=== PATIENT | female | born 1945 | race Caucasian/White ===

== ENCOUNTER → 2022-01-24 15:07 | Outpatient (BNVA) | payer MEDICARE, OTHER, SELFPAY | PROVIDERS: Visit Provider Nurse Practitioner | DX: R07.89 Other chest pain (principal); E55.9 Vitamin D deficiency, unspecified; I48.91 Unspecified atrial fibrillation; I10 Essential (primary) hypertension; S00.93XA Contusion of unspecified part of head, initial encounter; X58.XXXA Exposure to other specified factors, initial encounter | CPT/HCPCS: 71046; 80053; 82306; 84443; 85025 ==

== ENCOUNTER 2022-04-13 06:00 | Outpatient (RCR) | payer MEDICARE, OTHER, SELFPAY | END 2022-05-06 23:59 | disposition home or self-care (01) | LOC: APT 06:00 | PROVIDERS: Visit Provider Family Medicine | DX: M19.90 Unspecified osteoarthritis, unspecified site (principal); L40.50 Arthropathic psoriasis, unspecified | CPT/HCPCS: 97110; 97116; 97161; 97530 ==

== ENCOUNTER 2022-04-20 14:34 | Emergency (ER) | payer MEDICARE, OTHER, SELFPAY ==
[2022-04-20 14:42] VITALS: BP 156/58; PULSE 60; RESP 16; TEMP 36.7; O2SAT 95; BMI 29.2
--- NOTE | 2022-04-20 15:01 | PC.PHAR ---
Addendum entered by Julianne Lamar 04/20/22 15:07: pt states she takes hydroxychloroquine 200mg daily rx filled 03/25/22 90d/s for 200mg bid Original Note: pt states she takes care of her own medications-pt states she no longer takes eliquis 5mg bid pt states not taken for months ext med history shows last filled 07/19/21 90d/s-pt states she takes xanax 0.25-0.5mg hs prn ext med history shows last filled 03/25/22 30d/s 0.5mg daily-pt states she has an old rx of percocet 5/325mg states she took one this am-
--- NOTE | 2022-04-20 15:20 | XR_ITS ---
WS: [id number] XR lumbar spine 2-3V* [id number] REASON FOR EXAM: low back pain, no trauma, hx of psoriatic arthritis FINDINGS: Mild rotatory scoliosis convex left. No significant vertebral body abnormality. Mild narrowing of the L2-L3 disc space. Severe narrowing of the L4-L5 disc space with 12 mm of anterolisthesis of L4 on L5. Mild narrowing of the L5-S1 disc space. No spondylolysis identified. Severe degenerative change in the facet joints L3-S1. XR/XR lumbar spine 2-3V* [id number] IMPRESSION: Multilevel degenerative spondylosis as above.
--- NOTE | 2022-04-20 15:21 | W.ED.BACK ---
HPI - Back Pain/Injury General: Chief Complaint: Back Pain/Injury Stated Complaint: Low back pain Time Seen by Provider: 04/20/22 14:38 History of Present Illness: Patient presents to the ER with complaints of low back pain. Patient does have a history of psoriatic arthritis and often gets back pain but not to this extreme. Patient has had no overt trauma. This has been going on for approximately 1 week. Patient did start physical therapy for her walking and balance issues. Patient states last night she did lift her walker while twisting and felt a sharp pain in her low back. Patient admits to taking naproxen Tylenol Percocet and Xanax over the last 24 hours with no relief. MD elicited complaint: back pain Pertinent past history: prior back pain Onset (ago): week(s) (Worse in the last day) Timing: constant Severity: similar to previous episodes Similar Symptoms Previously: Yes Quality: sharp (Originally had sharp stabbing pain), dull and aching Location: lumbar spine Radiation: none Exacerbating factors: movement Relieving factors: none Context: while lifting and turning/twisting Associated symptoms: Reports no associated symptoms; Deny abdominal pain, chills, dysuria, fever(s), nausea or vomiting Treatments prior to arrival: NSAIDS, acetaminophen and prescription analgesics Work related injury: No Review of Systems General: Reports: 10 or more systems reviewed and unremarkable except in HPI and below Const: Denies: fever(s), chills or body aches Eyes: Denies: change in vision ENMT: Denies: throat pain or odynophagia Card: Denies: chest pain, palpitations, irregular heart rhythm or edema Resp: Denies: dyspnea, productive cough, non-productive cough or wheezing GI: Denies: abdominal pain, nausea, vomiting or diarrhea : Denies: flank pain, difficulty voiding, dysuria or urinary frequency Musc: Reports: back pain Skin/Breast: Denies: rash or pruritus Neuro: Denies: headache(s), numbness in extremities or weakness in extremities Psych: Denies: anxiety or depression Endo: Denies: polyuria or polydipsia Rios/Lymph: Denies: easy bruising or easy bleeding All/Imm: Denies: urticaria or throat swelling PFSH ED PFSH: Medical History Atrial fibrillation Essential hypertension OA (osteoarthritis) Psoriatic arthritis Surgical History History of appendectomy History of cataract surgery Both eyes History of hysterectomy with out BSO History of knee surgery Left knee patella fracture History of tonsillectomy and adenoidectomy Family History Father CAD (coronary artery disease) Denies family history of Diabetes Chronic kidney disease (CKD) Cancer Hypertension Stroke Social History Smoking and tobacco status: former smoker Second hand smoke exposure: No Smoking risk assessment/counseling performed?: No Alcohol intake: never Desire information about alcohol rehabilitation?: No Counseling given: No Desire information about substance/drug rehabilitation?: No Counseling given: No Adopted: No Caregiver/support person: No Lives independently: Yes Household members: significant other Housing: House Marital status: Life Partner Number of children: 0 Number of grandchildren: 0 Highest education level completed: Bachelor's Degree service: No Current occupational status: retired Current occupational exposures/hazards: No Pets and animals: Yes Pets & animal details: chickens Current gender identity: Female Physical Exam Const: COMMON NORMALS: no acute distress, average body habitus, patient oriented x3, no limitations, healthy appearing, alert and well nourished HENMT: COMMON NORMALS: normocephalic, atraumatic, hearing grossly normal bilaterally and moist oral mucous membranes HEAD & SCALP: normocephalic and atraumatic Eye: COMMON NORMALS: Equal, round and reactive pupils present, EOMs intact bilaterally and conjunctivae normal CONJUNCTIVA: Yes conjunctivae normal PUPIL: Yes Equal, round and reactive pupils present Neck/C-Spine: COMMON NORMALS: full ROM, no lymphadenopathy, supple, no JVD and Thyroid normal THYROID: Thyroid normal Chest: COMMONS NORMALS: normal inspection of the chest and normal palpation of entire chest wall Resp: COMMON NORMALS: normal respiratory effort, No retractions, No use of accessory muscles and clear to auscultation bilaterally AUSCULTATION: clear to auscultation bilaterally Cardio: COMMON NORMALS: no JVD, regular rate, regular rhythm, S1 normal heart sound present, S2 normal heart sound present and No gallops present (Cardio) RATE: regular rate RHYTHM: regular rhythm HEART SOUNDS: S1 normal heart sound present and S2 normal heart sound present Back/Pelvis: THORACIC SPINE/UPPER BACK: Yes normal to inspection and Yes thoracic ROM normal LUMBAR SPINE/LOWER BACK: No lumbar spinal tenderness and Yes paraspinal muscle tenderness Neuro: COMMON NORMALS: patient oriented x3 SENSORIUM/ORIENTATION: Yes alert Course Vital Signs: Vital signs: Vital Signs Temperature 98.0 F 04/20/22 14:42 Pulse Rate 58 L 04/20/22 16:19 Respiratory Rate 16 04/20/22 16:19 Blood Pressure 174/65 04/20/22 16:19 Pulse Oximetry 95 04/20/22 16:19 Oxygen Delivery Me thod 04/20/22 14:42 MDM - Back Pain/Injury Medical Decision Making Presents to the ER with chronic back pain. This is post strain while twisting while lifting up her walker. Patient does have chronic back pain due to psoriatic arthritis. Patient states she had some Tylenol, naproxen, Percocet and Xanax at home to which she tried to relieve the pain with over the last 24 hours but it did not work. Pain stays localized to her low back and does not radiate. Upon history and physical exam as well as review of the lumbar spine x-ray that showed multilevel degenerative arthritis specifically showing severe narrowing of the L4-5 disc space with 12 mm of anterolisthesis on L4-5, this was all explained to the patient in detail as well as the need to change up her medication regimen. Patient was in agreements with this and will be discharged on a different pain medicine, muscle relaxer, as well as prednisone. Patient should follow-up with her primary care physician within 1 week especially if not improving. Differential Diagnosis Likely strain of lumbar region; Unlikely lumbar radiculopathy, sciatica or thoracic back pain Labs I reviewed the patient's lab results. Radiology Impressions Lumbar Spine X-Ray 04/20/22 15:20 IMPRESSION: Multilevel degenerative spondylosis as above. Discharge Plan Discharge Patient Disposition: Home Clinical Impression: Degenerative disc disease, lumbar Strain of lumbar region Qualifiers: Encounter type: initial encounter Qualified Code(s): S39.012A - Strain of muscle, fascia and tendon of lower back, initial encounter Osteoarthritis of lumbar spine Qualifiers: Spinal osteoarthritis complication: without myelopathy or radiculopathy Qualified Code(s): M47.816 - Spondylosis without myelopathy or radiculopathy, lumbar region Condition: Stable Prescriptions: New Zanaflex 4 mg capsule 4 mg PO TID PRN (Reason: muscle spasticity) Qty: 14 0RF prednisone 20 mg tablet 20 mg PO BID 5 Days Qty: 10 0RF meloxicam 15 mg tablet 15 mg PO DAILY Qty: 14 0RF No Action metoprolol tartrate 100 mg tablet 100 mg PO BID Qty: 180 3RF multivitamin Tablet 1 tab PO DAILY zinc acetate 50 mg (zinc) Capsule 50 mg PO DAILY Tylenol Ex Str Rapid Release 500 mg Tablet 500 - 1,000 mg PO Q6H PRN (Reason: Pain) Percocet 5-325 mg Tablet 0.5 - 1 tab PO Q4H PRN (Reason: Pain) Aleve 220 mg Tablet 220 - 440 mg PO Q12H PRN (Reason: Pain) magnesium 200 mg Tablet 200 mg PO DAILY Vitamin D3 25 mcg (1,000 unit) Tablet 2,000 - 5,000 unit PO DAILY Xyzal 5 mg Tablet 5 mg PO DAILY vitamin K2 100 mcg Capsule 100 mcg PO DAILY NAC 600 mg Tablet 600 mg PO BID alprazolam 0.5 mg tablet 0.25 - 0.5 mg PO BEDTIME PRN (Reason: Sleep) lisinopril 10 mg tablet 10 mg PO QAM hydroxychloroquine 200 mg tablet 200 mg PO DAILY Discharge Orders: Discharge ED (Routine); Ordered 04/20/22 Ordered By: Ernie Yancey Referrals: Jimmie Arenas DO [Primary Care Provider] - 1 week Discharge Activity: Increase activity as tolerated Patient Instructions: Osteoarthritis (ED), Low Back Strain (ED), Opioid Safety, Pain Management Coding Level of Care Code ED Civil Drafting Technician for Sukumar Carmen
[2022-04-20] MEDS: ketorolac 60 mg/2 mL INJ IM (16:01)
[2022-04-20] MEDS: orphenadrine 30 mg/mL Inj 2 mL 60 MG IM (16:01)
[2022-04-20 16:19] VITALS: BP 174/65; PULSE 58; RESP 16; O2SAT 95
== END 2022-04-20 16:15 | disposition home or self-care (01) ==
PROVIDERS: Emergency Provider Emergency Medicine; PCP Family Medicine
DX: S39.012A Strain of muscle, fascia and tendon of lower back, initial encounter (principal); M47.816 Spondylosis without myelopathy or radiculopathy, lumbar region; M51.36 Other intervertebral disc degeneration, lumbar region; I10 Essential (primary) hypertension; X50.1XXA Overexertion from prolonged static or awkward postures, initial encounter
CPT/HCPCS: 72100; 96372; 99284; J1885; J2360

== ENCOUNTER → 2022-05-03 11:00 | Outpatient (BNVA) | payer MEDICARE, OTHER, SELFPAY | PROVIDERS: PCP Family Medicine; Visit Provider Nurse Practitioner Family | DX: M25.552 Pain in left hip (principal); M25.572 Pain in left ankle and joints of left foot | CPT/HCPCS: 73502; 73610 ==

== ENCOUNTER 2022-05-06 11:07 | Outpatient (CLI) | payer MEDICARE, OTHER, SELFPAY ==
--- NOTE | 2022-05-06 11:45 | MR_ITS ---
WS: [id number] MRI LUMBAR SPINE NONCONTRAST HISTORY: M54.50 - Low back pain, unspecified COMPARISON: None available. TECHNIQUE: Sagittal and axial multisequence imaging is submitted. Severe degenerative disc disease in the cervical spine with reversal of normal cervical lordosis. Mul tilevel central stenoses. Marked increase in thoracic kyphosis. Increase in the lumbar lordosis. L4 anterolisthesis by 11 mm. L5 anterolisthesis by 3.3 mm. Severe di sc space narrowing at L4-5. No fracture. Seen only on the sagittal imaging is increased T2 signal wit hin the region of the sacrum. May represent an insufficiency fracture. Conus terminates normally at L1-2 disc level. L1-L2: Mild disc bulging. Mild RIGHT foraminal narrowing. L2-L3: Mild annular disc bulging with effacement of ventral CSF. Mild bilateral subarticular recess n arrowing. Mild bilateral foraminal stenosis. L3-L4: Diffuse annular disc bulge with disc encroachment upon the subarticular recesses. Small LEFT p aracentral disc protrusion contacts the traversing LEFT L4 nerve root. Mild bilateral foraminal steno sis. Marked ligamentum flavum hypertrophy. L4-L5: Unroofing of the disc. Severe central, bilateral foraminal stenosis and subarticular recess st enosis. Complete effacement of CSF. Marked facet joint arthritis. L5-S1: Moderate annular disc bulging with facet and ligamentum flavum hypertrophy. Mild bilateral for aminal stenosis. Paravertebral soft tissues are negative. Seen on the localizer imaging was a cystic mass measuring 4. 2 x 4.0 cm in the central pelvis. This may be a small ovarian cyst. MR/MR lumbar spine wo con* [id number] IMPRESSION: 1. Grade 2 spondylolisthesis of L4. L4 anterolisthesis by 11 mm. 2. Severe central, bilateral foraminal stenosis and subarticular recess stenos is at L4-5. 3. Mild bilateral foraminal subarticular recess stenosis at L2-3. 4. Diffuse annular disc bulge with a small LEFT paracentral disc protrusion at L3-4. Disc protrusion contacts the traversing LEFT L4 nerve root. Additional b ilateral foraminal stenosis at L3-4. 5. Mild bilateral foraminal stenosis at L5-S1. 6. Seen only on the localizer imaging is increased T2 signal within the sacrum . Bilateral signal abnormality. Correlate for possible sacral insufficiency fra cture. 7. Cyst in the central pelvis measures 4.2 x 4.0 cm. May be ovarian or paraova parmjit in etiology. Transvaginal pelvic ultrasound can be performed for further e valuation if clinically thought necessary. 8. Cervical spine central stenosis.
== END 2022-05-06 11:08 | disposition home or self-care (01) ==
PROVIDERS: PCP Family Medicine; Visit Provider Family Medicine
DX: M48.061 Spinal stenosis, lumbar region without neurogenic claudication (principal); M43.16 Spondylolisthesis, lumbar region; M51.26 Other intervertebral disc displacement, lumbar region; M48.07 Spinal stenosis, lumbosacral region; M48.02 Spinal stenosis, cervical region
CPT/HCPCS: 72148

== ENCOUNTER 2022-05-07 06:00 | Outpatient (RCR) | payer MEDICARE, OTHER, SELFPAY | END 2022-06-05 23:59 | disposition home or self-care (01) | LOC: APT 06:00 | PROVIDERS: PCP Family Medicine; Visit Provider Family Medicine | DX: L40.50 Arthropathic psoriasis, unspecified (principal) | CPT/HCPCS: 97110; 97112; 97530 ==

== ENCOUNTER → 2022-05-19 15:10 | Outpatient (BNVA) | payer MEDICARE, OTHER, SELFPAY | PROVIDERS: PCP Family Medicine; Referring Provider Family Medicine; Visit Provider Physician Assistant | DX: M43.16 Spondylolisthesis, lumbar region (principal); M43.17 Spondylolisthesis, lumbosacral region; M48.061 Spinal stenosis, lumbar region without neurogenic claudication; M54.50 Low back pain, unspecified | CPT/HCPCS: 72120; 99203 ==

== ENCOUNTER → 2022-05-26 10:06 | Outpatient (BNVA) | payer MEDICARE, OTHER, SELFPAY | PROVIDERS: PCP Family Medicine; Visit Provider Family Medicine | DX: Z01.818 Encounter for other preprocedural examination (principal); I48.91 Unspecified atrial fibrillation | CPT/HCPCS: 80048; 85025 ==

== ENCOUNTER 2022-06-06 10:39 | Inpatient (IN) | payer MEDICARE, OTHER, SELFPAY ==
[2022-06-01 13:05] VITALS: BMI 29.2
--- NOTE | 2022-06-01 13:20 | ECG_ITS ---
[facility] Test Date: 2022-06-01 Pat Name: Verena Draper Department: Room: Gender: Female Construction Helper: : 1945 Requested By: Dayday Coto Order Number: [id number] Santhosh MD: Nabeel Rockwell M.D. Measurements Intervals [place] Rate: 52 P: 95 [place]: 248 QRS: 27 QRSD: 95 T: 60 QT: 458 QTc: 426 Interpretive Statements SINUS BRADYCARDIA WITH FIRST DEGREE AV BLOCK No previous ECG available for comparison Electronically Signed On 06-01-2022 16:27:51 CDT by Nabeel Rockwell M.D. [id number]
--- NOTE | 2022-06-01 15:43 | ANES.PREANE2 ---
Pre-Anesthetic Assessment Height/Weight: Height 1.63 m Weight 77.111 kg Operation Date: 06/06/22 07:00 Proposed Procedures p Lumbar Fusion: L3-Pelvis instrumented fusion w decopression L4/5, L5/[id number],36114,97608,82805,05592,74395,53285,74513,60481(Not Applicable) - DO lacey Muñoz Lumbar Spine Decompression:L4/5 59229, L5/S1 58756, M43.16, M43.17, M48.062(Not Applicable) - Trevor Perez DO Familial anesthetic complications: none Was Beta Pasha taken within 24 hours: Yes Was Clonidine taken within 24 hours: N/A Social No alcohol and No tobacco Exam alert, oriented x 3 and clear to auscultation bilaterally Dustin, regular Airway Submandibular: within normal limits Cervical ROM: within normal limits Mallampati: Class II Dentition: full CV/HEM Atrial Fibrillation and Hypertension Musc/skel Lower Back Pain and Osteoarthritis/DJD Neuropsych Anxiety and Depression Anesthetic Plan ASA status: 3 Anesthesia: General Other: Discussed a.line and transfusion Medications/Allergies Home Medications Medication Instructions Recorded Confirmed Last Taken Type metoprolol tartrate 100 mg tablet 100 mg PO BID #180 tabs 03/25/22 06/01/22 04/20/22 Rx acetaminophen 500 mg tablet 500 - 1,000 mg PO Q6H PRN Pain 04/20/22 06/01/22 Unknown History acetylcysteine 600 mg tablet (NAC) 600 mg PO BID 04/20/22 06/01/22 Unknown History alprazolam 0.5 mg tablet 0.25 - 0.5 mg PO BEDTIME PRN Sleep 04/20/22 06/01/22 04/20/22 History cholecalciferol (vitamin D3) 25 2,000 - 5,000 unit PO DAILY 04/20/22 06/01/22 Unknown History mcg (1,000 unit) tablet (Vitamin D3) levocetirizine 5 mg tablet (Xyzal) 5 mg PO DAILY 04/20/22 06/01/22 Unknown History lisinopril 10 mg tablet 10 mg PO QAM 04/20/22 06/01/22 04/20/22 History magnesium 200 mg tablet 200 mg PO DAILY 04/20/22 06/01/22 Unknown History multivitamin 1 tab PO DAILY 04/20/22 06/01/22 Unknown History zinc acetate 50 mg (zinc) capsule 50 mg PO DAILY 04/20/22 06/01/22 Unknown History meloxicam 15 mg tablet 15 mg PO DAILY PRN pain #30 tabs 05/03/22 06/01/22 05/29/22 Rx Intraoperative Neuromonitoring #1 ea 05/25/22 05/25/22 Unknown Rx cyclobenzaprine 10 mg tablet 10 mg PO DAILY PRN muscle spasm 06/01/22 06/01/22 Unknown History Allergies Allergy/AdvReac Type Severity Reaction Status Date / Time sulfamethoxazole Allergy Severe confusion Verified 06/01/22 13:01 [From Bactrim] trimethoprim [From Bactrim] Allergy Unknown confusion Verified 06/01/22 13:01 [facility] Anesthesia Medical History Atrial fibrillation Essential hypertension OA (osteoarthritis) Psoriatic arthritis Surgical History History of appendectomy History of cataract surgery Both eyes History of hysterectomy with out BSO History of knee surgery Left knee patella fracture History of tonsillectomy and adenoidectomy Family History Father CAD (coronary artery disease) Denies family history of Diabetes Chronic kidney disease (CKD) Cancer Hypertension Stroke Social History Smoking and tobacco status: former smoker Second hand smoke exposure: No Smoking risk assessment/counseling performed?: No Alcohol intake: never Desire information about alcohol rehabilitation?: No Counseling given: No Substance/Drug Use: never Desire information about substance/drug rehabilitation?: No Counseling given: No Adopted: No Caregiver/support person: No Lives independently: Yes Household members: significant other Housing: House Marital status: Life Partner Number of children: 0 Number of grandchildren: 0 Highest education level completed: Bachelor's Degree service: No Current occupational status: retired Current occupational exposures/hazards: No Pets and animals: Yes Pets & animal details: chickens Do you think of yourself as: Straight/Heterosexual Current gender identity: Female Data Anesthesia Cardiac Studies: No Data to Display
[2022-06-06] VITALS (15 sets, daily range): BP systolic 114–177; BP diastolic 52–77; PULSE 55–66; RESP 16–21; TEMP 36.2–36.8; O2SAT 91–100
--- NOTE | 2022-06-06 | XR_ITS ---
WS: [id number] XR lumbar spine 2-3V* [id number] REASON FOR EXAM: OR PICS FINDINGS: Posterior pedicle screws placed at L4-L5 with interconnecting rods. Surgical appliances are intact and in proper position and alignment. Significant anterolisthesis of L4 in relation to L5 again noted. XR/XR lumbar spine 2-3V* [id number] IMPRESSION: Postoperative lumbar spine as above.
[2022-06-06] MEDS: sodium chloride 0.9% 1,000 ML 30 ML IV (06:06)
--- NOTE | 2022-06-06 06:26 | W.PM.OPSUD ---
Surgery/Procedure H&P Update DATE OF PROCEDURE: June 06, 2022 DATE H&P PERFORMED: 05/19/22 H&P UPDATE INFORMATION: I have reviewed H&P completed within last 30 days, I have examined patient prior to procedure and No changes to prior documentation CHANGES TO PREVIOUS DOCUMENTATION: will do A L4/5 PLIF PREOP DIAGNOSIS: Spondylolisthesis L4-5 L5-S1, lumbar stenosis with neurogenic claudication PLANNED PROCEDURE: Operation Date: 06/06/22 07:00 Proposed Procedures p Lumbar Fusion: L3-Pelvis instrumented fusion w decopression L4/5, L5/[id number],51105,42647,62496,11321,04267,26853,26552,62077(Not Applicable) - DO lacey Muñoz Lumbar Spine Decompression:L4/5 90001, L5/S1 49865, M43.16, M43.17, M48.062(Not Applicable) - Trevor Perez DO
[2022-06-06 06:38] LABS: Basophils % 0.4 %; Eosinophils # 0.1 10^3/uL (0.0-0.8); Hematocrit 42.6 % (37.0-47.0); Hemoglobin 13.5 g/dL (11.5-15.3); Lymphocytes # 1.4 10^3/uL (0.8-4.8); Lymphocytes % 19.4 %; Mean Corpuscular HGB Conc 31.7 g/dL (30.0-36.0); Mean Corpuscular Hemoglobin 31.3 pg (28.0-34.0); Mean Corpuscular Volume 98.8 fl (81-99); Mean Platelet Volume 9.4 fL (7.4-10.4); Monocytes # 0.6 10^3/uL (0.2-0.9); Monocytes % 8.9 %; Neutrophils # 5.03 10^3/uL (1.8-7.7); Neutrophils % 69.7 %; Nucleated Red Blood Cells % 0 %; Platelet Count 244 10^3/cmm (130-400); Red Blood Count 4.31 10^6/uL (4.1-5.3); Red Cell Distribution Width 13.3 % (12.1-15.1); White Blood Count 7.2 10^3/uL (4.0-10.0)
--- NOTE | 2022-06-06 06:52 | P.ANESUD_ITS ---
Pre-Anesthetic Update Pre-Anesthetic Assessment: Date of Surgery/Procedure: 06/06/22 Preop Payton gnosis: Spondylolisthesis L4-5 L5-S1, lumbar stenosis with neurogenic claudication Proposed Procedure: Operation Date: 06/06/22 07:00 Proposed Procedures p Lumbar Fusion: L3-Pelvis instrumented fusion w decopression L4/5, L5/[id number],95548,69151,18985,20958,68215,30454,21703(Not Applicable) - Trevor Perez, DO s Lumbar Spine Decompression:L4/5 02722, L5/S1 16006, M43.16, M43.17, M48.062(Not Applicable) - Trevor Perez, DO Any changes to Pre-Anesthetic Assessment?: No Last Intake: Intake Last Liquid Date 05/25/22 Last Liquid Time 23:59 Last Solid Date 06/05/22 Last Solid Time 22:00 Labs Last 48hrs: Short CBC 06/06/22 Range/Units 06:25 WBC 7.2 (4.0-10.0) 10^3/ uL Hgb 13.5 (11.5-15.3) g/dL Hct 42.6 (37.0-47.0) % MCV 98.8 (81-99) fl Plt Count 244 (130-400) 10^3/c mm Neut % (Auto) 69.7 % Neut # (Auto) 5.03 (1.8-7.7) 10^3/u L Vitals: Temperature 98.2 F 06/06/22 06:02 Temperature Source Temporal Artery S can 06/06/22 06:02 Pulse Rate 63 06/06/22 06:02 Respiratory Rate 18 06/06/22 06:02 Blood Pressure 167/65 06/06/22 06:02 Blood Pressure Shirley n 99 06/06/22 06:02 Pulse Oximetry 97 06/06/22 06:02 Oxygen Delivery Me thod Room Air 06/06/22 06:15 Exam: Pre-Anes Outpt Exam: alert, oriented x 3, clear to auscultation bilaterally and regular rate & rhythm Cardiac Studies: No Data to Display
[2022-06-06] MEDS: ceFAZolin 2,000 MG in sodium chloride 0.9% (plus) 50 ML 100 MG IV ×3 (07:05→22:17)
[2022-06-06 07:26] LABS: Anion Gap 13.9 (5-19); Blood Urea Nitrogen 16 mg/dL (8-23); Calcium 8.8 mg/dL (8.5-10.5); Carbon Dioxide 24 mmol/L (22-29); Chloride 101 mmol/L (98-107); Glucose 164 mg/dL (65-115); Osmolality Calculated 285 mOsm/kg (285-295); Potassium 3.9 mmol/L (3.5-5.1); Sodium 135 mmol/L (136-145)
[2022-06-06] MEDS: lidocaine-epi 1% 20 mL INJ INJECTION (07:39)
[2022-06-06] MEDS: tranexamic acid 1,000 mg/10mL SDV 1000 MG IV (07:45)
[2022-06-06] MEDS: heparin, porcine 1,000 unit/mL INJ 10 mL 10000 UNIT XX (08:19)
[2022-06-06] MEDS: vancomycin 1,000 MG SDV 1000 MG XX (08:20)
--- NOTE | 2022-06-06 10:46 | PM.OP ---
Operative Report Date of procedure: June 06, 2022 Pre-op diagnosis: Preop Diagnosis Spondylolisthesis L4-, lumbar stenosis with neurogenic claudication Post-op diagnosis: same Procedure done: 1. L4-5 posterior spine fusion 2. L4-5 posterior spine instrumentation 3. L4/5 laminectomy with facetectomies 4. use of computer navigation/stereotactic for spine 5. bone marrow aspirate right iliac crest 6. use of allograft 7. use of autograft Surgeon: Trevor Perez Cigarette Tester: Rigoberto Bettencourt Cigarette Tester: The virtual assistant for advertisers, Rigoberto Bettencourt, PAC was needed for his expertise under the microscope. He was important and necessary throughout the procedure to complete in a safe and timely manner. He assisted with patient positioning prepping and draping tissue retraction suctioning of the operative field protection of the dural sac and tissue closure Estimated blood loss (mL): 250 Complications: Dural tear was repaired with a watertight seal. Procedure: 1. L4-5 posterior spine fusion 2. L4-5 posterior spine instrumentation 3. L4/5 laminectomy with facetectomies 4. use of computer navigation/stereotactic for spine 5. bone marrow aspirate right iliac crest 6. use of allograft 7. use of autograft Patient is brought the operative suite after undergoing anesthesia was placed in prone position. All his pressure well-padded. Patient was prepped draped normal sterile fashion. Skin incision made over the L4-5 level. Dissection was made down through the thoracolumbar fascia subperiosteal dissection was made on the spinous process out to the L4 transverse process and L5 transverse process bilaterally. Next attention was brought to obtaining bone marrow aspirate. This was done by using the [facility] bone marrow aspiration kit. The bone marrow awl was inserted and then aspirated 1 mm increments the bone marrow aspirate was then placed with the allograft which was by [employer]. This will be later used in the case. Extension was brought to placing the fiducial for the computer navigation. 2 pins were placed in the right iliac crest. The fusion was attached. C-arm was brought in spine on the patient. The information from the C-arm was then loaded in the computer. This was used later for placing the computer navigated pedicle screws. The pedicle screws were then placed. This was done by using the gearshift awl which was linked to computer navigation followed by pedicle feeler. Followed by computer navigated screws. This was done by placing the screws once screws were placed at L4 and L5 bilaterally attention was then brought to performing the laminectomy. Laminectomy was performed using high-speed bur curved curettes and Kerrison rongeurs. Facetectomies were also performed at the same time again using curved curettes high-speed bur and Kerrison rongeurs. The L4-5 spinal thesis was evaluated partial discectomy was performed the tiana were placed inside of the disc space however patient's bone was soft I do not feel is stable enough to place a cage. So I did not place a cage. This point then the rods and were placed bilaterally. The pedicle screws were distracted in order to facilitate room for the L4 nerve roots. L5 nerve roots were stable, around the L5 pedicles. Next attention was brought to decorticating the bone. The high-speed bur was used to decorticate the bone and in the gutters bone graft was placed. Of note patient did have a dural tear on the left side when the medial aspect of facet was again taken down. A stitch was placed into this as well as DuraGen and DuraSeal. Wound was closed in layered fashion with 0 Vicryl 2-0 Vicryl and Monocryl suture. Sterile dressings were applied patient was transferred to the PACU in stable condition.
[2022-06-06] MEDS: lactated ringers 1,000 ML 90 ML IV ×2 (11:22→22:17)
[2022-06-06] MEDS: HYDROcodone-acetaminophen 5-325 mg Tablet PO ×2 (12:43→20:01)
--- NOTE | 2022-06-06 13:08 | ANE.PACU2 ---
Inpatient post-anesthesia follow up: Airway intact: Yes Vital signs: Temperature 97.1 F Pulse Rate 62 Respiratory Rate 18 Blood Pressure 133/67 Pulse Oximetry 95 Oxygen Delivery Me thod Room Air Oxygen Flow Rate 7 Fraction of Inspir ed Oxygen Hydration adequate: Yes Nausea and vomiting: No Pain level: 1 Mental status: Baseline
[2022-06-06] MEDS: metoprolol tartrate 50 mg Tablet 100 MG PO (20:01)
[2022-06-07] VITALS (7 sets, daily range): BP systolic 151–184; BP diastolic 72–79; PULSE 64–81; RESP 16–18; TEMP 36.5–36.8; O2SAT 94–100
[2022-06-07] MEDS: lisinopril 10 mg Tablet PO (05:56)
[2022-06-07] MEDS: HYDROcodone-acetaminophen 5-325 mg Tablet PO ×2 (05:56→12:10)
[2022-06-07] MEDS: ceFAZolin 2,000 MG in sodium chloride 0.9% (plus) 50 ML 100 MG IV (05:59)
--- NOTE | 2022-06-07 07:31 | P.PN_ITS ---
Subjective Subjective: POD 1 Patient denies headaches, chest pain, shortness of breath. Reports back pain improvement of leg symptoms. Vitals/I&O/Wt Last Vital Signs Temp 97.8 F 06/07/22 05:42 Pulse 69 06/07/22 05:42 Resp 17 06/07/22 05:42 BP 184/76 06/07/22 05:42 Pulse Ox 98 06/07/22 05:42 O2 Del Method Room Air 06/07/22 05:42 O2 Flow Rate 7 06/06/22 10:35 06/06/22 06/07/22 06/07/22 22:59 06:59 14:59 Intake Total 1562.5 / 3368.5 50 / 3418.5 Output Total 400 / 950 1600 / 2550 Balance 1162.5 / 2418.5 -1550 / 868.5 Physical Exam Narrative: Patient presents alert and oriented x3 with a good general appearance normal mood and affect. Normal coordination normal stability. Mild tenderness around the incisional site with the incision appear to be clean and dry. No signs of erythema or drainage. No signs of infection. Patient denies any fevers or chills. 5/5 motor strength both lower extremities with negative straight leg raise bilaterally. Calves are supple no medial thigh tenderness. Pulses are 2+ at the dorsalis pedis and posterior tibial region. Good capillary refill throughout normal sensation light touch both lower extremities. Urinary Catheter Management: Boyd: Cath Placed During This Visit: yes Reason for Continuing Indwelling Catheter: Perioperative Use in Selected Surgeries Urinary Catheter Date of Insertion: 06/06/22 Urinary Catheter Time of Insertion: 07:15 Data 06/06/22 06:25 06/06/22 07:00 A&P Assessment and plan (1) Status post lumbar spinal fusion: Physical therapy to mobilize. If mobilizing comfortably we can discontinue Fo samara catheter. Encourage incentive spirometry for pulmonary toilet. If progressing nicely will discharge home later today. SCDs for pulmonary toilet as she is high risk of bleeding. (2) Incidental durotomy: Attestations Medical Necessity Statement*: Hopeful discharge home later today. Coding Level of Care Code Acute Code for Chg Fwd Diagnoses Status post lumbar spinal fusion Z98.1 Incidental durotomy G97.41
[2022-06-07] MEDS: docusate sodium 100 mg Capsule PO ×2 (09:00→17:50)
[2022-06-07] MEDS: multivitamin therapeutic Tablet 1 TAB PO (09:00)
[2022-06-07] MEDS: metoprolol tartrate 50 mg Tablet 100 MG PO ×2 (09:00→20:17)
--- NOTE | 2022-06-07 09:38 | PC.CHAP ---
Pastoral Care Encounter/Spiritual Assessment Type of Contact [] Declined box press operator visit [] Patient/Family/Request visit [] Outpatient visit [] Follow-up visit [] Physician referral [] Code/Alert [x] Routine visit [] Staff referral [] Actively dying [] Patient sleeping [] Family support [] [] Out of room [] Palliative care [] [] Receiving care in room [] Pre-surgical visit [] Trauma [] Long length of stay [] ICU visit [] Other: Relational/Emotional Strength [x] Patient feels connected with others/family/visitors/staff [] Distress [] Loneliness/isolation [] Abandonment Spirituality of Patient [x] Person of [place] [] Attends Roman Catholic of their [place] [x] Believes in Prayer [] Reads Bible or Protestant materials [] There are Spiritual issues to be addressed Stitcher Around Interventions [x] Prayer [x] Active listening [] Non-anxious presence [x] Spiritual/emotional support [] Crisis/trauma care [] Spiritual counseling [] Bereavement support [] Provided bereavement packet [] Provided Bible/devotional materials [] Provided toy/stuffed animal, coloring book to patient or family member [] Provided Communion [] Anointing/[place] [] Salvation [x] Completed spiritual assessment [] Other: Impact on Illness or Injury [] Angry [] Fearful [] Anxious [] Often cries [] Exhaustion [] Unable to work [] Unable to attend latter-day [] Unable to walk/stand [] Unable to read [] Unable to drive [] Unable to eat/drink [] Unable to sleep [] Unable to be with family [] Patient intubated [] Other: Summary Time spent with patient 5 min
[2022-06-07] MEDS: lactated ringers 1,000 ML 90 ML IV (10:50)
[2022-06-07] MEDS: cyclobenzaprine 10 mg Tablet PO (17:50)
[2022-06-07] MEDS: acetaminophen 325 mg Tablet 650 MG PO (19:16)
[2022-06-08] VITALS: BP 146/73; PULSE 69; RESP 16; TEMP 36.4; O2SAT 96
[2022-06-08 04:10] VITALS: BP 161/75; PULSE 76; RESP 18; TEMP 36.7; O2SAT 96
[2022-06-08] MEDS: lisinopril 10 mg Tablet PO (05:12)
--- NOTE | 2022-06-08 06:28 | PM.PN ---
Subjective Subjective: POD 2 Patient doing better complains of back pain leg pain has improved. Denies any headaches. Denies any shortness of breath or chest pain. She states the oxycodone works better than the hydrocodone for pain control. Vitals/I&O/Wt Last Vital Signs Temp 98.0 F 06/08/22 04:10 Pulse 76 06/08/22 04:10 Resp 18 06/08/22 04:10 BP 161/75 06/08/22 04:10 Pulse Ox 96 06/08/22 04:10 O2 Del Method Room Air 06/08/22 04:10 O2 Flow Rate 7 06/06/22 10:35 06/07/22 06/07/22 06/08/22 14:59 22:59 06:59 Intake Total 1480 / 1480 991.5 / 2471.5 Balance 1480 / 1480 991.5 / 2471.5 Physical Exam Narrative: She is alert and orient x3 has good general appearance moderately depressed mood today. She is firing in all motor groups with good strength incision is clean and dry Urinary Catheter Management: Boyd: Cath Placed During This Visit: yes, but has since been removed by the nurse Reason for Continuing Indwelling Catheter: Other Urinary Catheter Date of Insertion: 06/06/22 Urinary Catheter Time of Insertion: 07:15 Date Urinary Catheter Removed: 06/07/22 Time Urinary Catheter Discontinued: 11:00 Data 06/06/22 06:25 06/06/22 07:00 A&P Assessment and plan (1) Status post lumbar spinal fusion: Per the patient's request she states that oxycodone has worked better for her in the past rather than the hydrocodone. We will send her home with oxycodone fives take 1-2 every 4-6 hours as needed pain. She also states the Flexeril 10 mg 1 p.o. 3 times daily has given her good relief in the past as well. We will see her back in the office in 1 week's time encouraged her to take the incentive spirometer at home for pulmonary toilet. Continue walking program with no bending lifting or twisting. Call if she is having problems. (2) Incidental durotomy: Attestations Medical Necessity Statement*: Discharge home later this morning Coding Level of Care Code Acute Code for Chg Fwd Diagnoses Status post lumbar spinal fusion Z98.1 Incidental durotomy G97.41
[2022-06-08] MEDS: docusate sodium 100 mg Capsule PO (08:32)
[2022-06-08] MEDS: metoprolol tartrate 50 mg Tablet 100 MG PO (08:33)
[2022-06-08] MEDS: multivitamin therapeutic Tablet 1 TAB PO (08:33)
[2022-06-08] MEDS: HYDROcodone-acetaminophen 5-325 mg Tablet PO (08:39)
--- NOTE | 2022-06-09 10:56 | P.DS_ITS ---
Discharge Providers Date of Admission: 06/06/22 10:39 Date of Discharge: June 08, 2022 Attending Provider at Admission: Trevor Perez DO Attending Provider at Discharge: Trevor Perez DO Primary Care Provider: Oneida Spencer MD Diagnoses at Discharge Discharge Diagnosis (1) Status post lumbar spinal fusion: Status: Acute (2) Incidental durotomy: Status: Resolved Reason for Visit Reason for Visit: Pelvis instrumented fusion w decompression M43.16 Physical Exam Urinary Catheter Management: Boyd: Cath Placed During This Visit: yes, but has since been removed by the nurse Reason for Continuing Indwelling Catheter: Other Urinary Catheter Date of Insertion: 06/06/22 Urinary Catheter Time of Insertion: 07:15 Date Urinary Catheter Removed: 06/07/22 Time Urinary Catheter Discontinued: 11:00 Discharge Data Studies Completed and Pending Completed Studies During Hospitalization Category Date Time Status XR lumbar spine 2-3V* [id number] Routine Exams 06/06/22 Completed Radiology Impressions Lumbar Spine X-Ray 06/06/22 00:00 IMPRESSION: Postoperative lumbar spine as above. Laboratory Results WBC 7.2 10^3/uL (4.0-10.0) 06/06/22 06:25 RBC 4.31 10^6/uL (4.1-5.3) 06/06/22 06:25 Hgb 13.5 g/dL (11.5-15.3) 06/06/22 06:25 Hct 42.6 % (37.0-47.0) 06/06/22 06:25 MCV 98.8 fl (81-99) 06/06/22 06:25 MCH 31.3 pg (28.0-34.0) 06/06/22 06:25 MCHC 31.7 g/dL (30.0-36.0) 06/06/22 06:25 RDW 13.3 % (12.1-15.1) 06/06/22 06:25 Plt Count 244 10^3/cmm (130-400) 06/06/22 06:25 MPV 9.4 fL (7.4-10.4) 06/06/22 06:25 Neut % (Auto) 69.7 % 06/06/22 06:25 Lymph % (Auto) 19.4 % 06/06/22 06:25 [place] % (Auto) 8.9 % 06/06/22 06:25 Eos % (Auto) 1.0 % 06/06/22 06:25 Baso % (Auto) 0.4 % 06/06/22 06:25 Neut # (Auto) 5.03 10^3/uL (1.8-7.7) 06/06/22 06:25 Lymph # (Auto) 1.4 10^3/uL (0.8-4.8) 06/06/22 06:25 [place] # (Auto) 0.6 10^3/uL (0.2-0.9) 06/06/22 06:25 Eos # (Auto) 0.1 10^3/uL (0.0-0.8) 06/06/22 06:25 Baso # (Auto) 0.0 10^3/uL (0.0-0.1) 06/06/22 06:25 Nucleated RBC % (auto) 0 % 06/06/22 06:25 Nucleated RBCs # 0.0 /100WBC 06/06/22 06:25 Sodium 135 mmol/L (136-145) L 06/06/22 07:00 Potassium 3.9 mmol/L (3.5-5.1) 06/06/22 07:00 Chloride 101 mmol/L (98-107) 06/06/22 07:00 Carbon Dioxide 24 mmol/L (22-29) 06/06/22 07:00 Anion Gap 13.9 (5-19) 06/06/22 07:00 BUN 16 mg/dL (8-23) 06/06/22 07:00 Creatinine 0.5 mg/dL (0.5-0.9) 06/06/22 07:00 GFR Calculation Not Reportable 06/06/22 07:00 Glucose 164 mg/dL (65-115) H 06/06/22 07:00 Calculated Osmolality 285 mOsm/kg (285-295) 06/06/22 07:00 Calcium 8.8 mg/dL (8.5-10.5) 06/06/22 07:00 Blood Type O Positive 06/06/22 07:00 Rho(D) Type Positive 06/06/22 07:00 Antibody Screen Negative 06/06/22 07:00 Vitals Last Vital Signs Temp 98.0 F 06/08/22 04:10 Pulse 76 06/08/22 04:10 Resp 18 06/08/22 04:10 BP 161/75 06/08/22 04:10 Pulse Ox 96 06/08/22 04:10 O2 Del Method Room Air 06/08/22 04:10 O2 Flow Rate 7 06/06/22 10:35 Discharge Plan Discharge Patient Disposition: Home Condition: Stable Prescriptions: New (DME) Intraoperative Neuromonitoring See Rx Instructions .Route .MEDSUPPLY Qty: 1 0RF Rx Instructions: As directed (DME) Bone Growth Stimulator E0748 See Rx Instructions .Route .MEDSUPPLY Qty: 1 0RF Rx Instructions: As directed oxycodone 5 mg tablet 5 mg PO Q4H PRN (Reason: pain) 7 Days Qty: 40 0RF cyclobenzaprine 10 mg tablet 10 mg PO TID PRN (Reason: muscle spasm) 20 Days Qty: 60 0RF Continued metoprolol tartrate 100 mg tablet 100 mg PO BID Qty: 180 3RF meloxicam 15 mg tablet 15 mg PO DAILY PRN (Reason: pain) Qty: 30 2RF cyclobenzaprine 10 mg tablet 10 mg PO DAILY PRN (Reason: muscle spasm) multivitamin Tablet 1 tab PO DAILY zinc acetate 50 mg (zinc) Capsule 50 mg PO DAILY acetaminophen 500 mg Tablet 500 - 1,000 mg PO Q6H PRN (Reason: Pain) magnesium 200 mg Tablet 200 mg PO DAILY cholecalciferol (vitamin D3) [Vitamin D3] 25 mcg (1,000 unit) Tablet 2,000 - 5,000 unit PO DAILY levocetirizine [Xyzal] 5 mg Tablet 5 mg PO DAILY NAC 600 mg Tablet 600 mg PO BID alprazolam 0.5 mg tablet 0.25 - 0.5 mg PO BEDTIME PRN (Reason: Sleep) lisinopril 10 mg tablet 10 mg PO QAM Discharge Orders: Discharge Order (Routine); Ordered 06/08/22 Ordered By: Nura Patel Referrals: Trevor Perez DO [Physician] - 06/14/22 2:45 pm (APPOINTMENT WITH NURA PATEL) Discharge Diet: Advance as tolerated Discharge Activity: Limit activity as instructed Patient Instructions: Cyclobenzaprine (By mouth), Oxycodone, Rapid Release (By mouth), Lumbar Spinal Fusion (GEN), Opioid Safety Activity Restrictions/Additional Instructions: Thank you for choosing [facility] for your care! The following is a list of instructions, from your provider, to follow upon your discharge to ensure you have the optimal recovery from your recent injury or surgery. Follow-up care is a schuster part of your treatment and safety. Be sure to make and go to all appointments and call your doctor if you are having problems. If you do not already have a follow-up appointment made, call Dr. Perez's] office in the next 1-3 days to make follow up appointment for 1 weeks at [phone]. It is also a good idea to know your test results and keep a list of the medicines you take. Medications will be prescribed for you at your provider's discretion. These medications are to be used as instructed; if they are taken more often that prescribed they will not be refilled early and in most cases will not be refilled at all. > When a refill is needed, you should contact kenneth cabrera 2-3 business days before your prescription runs out. Medications will NOT be refilled by precision lens grinder apprentice providers after hours! > Many pain medications contain Tylenol (Acetaminophen). Do not consume more than 4,000 mg of Tylenol per day in total with any combination of medications. > Pain medications can cause constipation. Please use an over the counter stool softener as directed, while taking pain medications. Consult your local pharmacist with questions or recommendations on stool softeners. If constipation persists, contact our office or your primary care provider. > While under our care, you are not to receive pain medications or other controlled substances from any other provider unless our office is notified and approves. Any attempts to do so will result in refusal to prescribe any further pain medications and possible dismissal from our practice. ? Walking is essential for the healing process after surgery. We would like you to slowly advance your walking. This should be done on relatively flat clear ground (inside or out) or can be done on a treadmill. Remember this goal does not have to happen all at once, slowly increase your distance and duration. This can be broken into more more than one walk per day as tolerated. Patients who walk as directed after surgery rarely require Physical Therapy. In the unlikely event this issue arises your provider will direct hospital staff to make the appropriate arrangements. ? No lifting over 5 pounds {a gallon of milk) or bending/twisting until further notice. Each of these activities places an unnecessary amount of stress onto the body and can impede the delicate healing process. > Instead of bending at the waist, keep your back straight and bend at the knees. > Instead of twisting your torso, keep your back straight and turn your entire body with your feet. ? You may sleep in any position which makes you comfortable. Many patients find comfort sleeping in a reclining chair. It is not abnormal to have difficulty sleeping for the first several weeks following your surgery. We recommend trying Benadry! or Tylenol PM as directed to help with your sleeping difficulties. Both medications are over the counter and available without prescription. ? NO SMOKING!!! Smoking dramatically increases the probability of developing postoperative wound infections. ? Common complaints after lumbar and/or thoracic spine surgery include, but are not limited to: numbness and/or tingling in the legs, pain around the incision and surrounding tissues, muscle spasms, or stiffness of the middle to low back. Contact our office if these symptoms persist or if an acute change occurs. ? No driving for the first 3-5days, and not while taking narcotics until seen at your follow-up appointment and cleared. There are no restrictions for riding on short trips, however if you take a longer trip, arrangements should be made to make regular stops to get out of the vehicle and stretch . ? Swelling is an unfortunate event that will take place with any surgery and is the primary source of your postoperative discomfort. While walk ing and regular approved activities helps control inflammation, there are additional steps you can take to minimize swelling. > Place ice over the surgical site and surrounding tissue for twenty minutes, followed by applying a low/medium heat (heating pad) for an additional twenty minutes every 1-2 hours as needed for painrelief. > You may use of over the counter anti-inflammatory medications (Ibuprofen, Motrin, Aleve, Advil, etc) as directed on the package label. These types of medicines will significantly reduce the amount of discomfort you experience after surgery from swelling. It should be noted that if you have and allergy to any of these medications, or a history of ulcers or kidney disease you should consult you primary care provider prior to starting these medication s. Discharge Attestations Time Spent in Discharge Care*: less than 30 min Quality Metrics Clinical Quality Measures [ No reported AMI, CVA or VTE this stay] Coding Level of Care Code Acute Code for Chg Fwd Diagnoses Status post lumbar spinal fusion Z98.1 Incidental durotomy G97.41
== END 2022-06-08 10:00 | disposition home or self-care (01) | DRG 460 ==
LOC: MEDSURG 17:48
PROVIDERS: Anesthesiology; Admitting Provider Orthopaedic Surgery; PCP Family Medicine; Visit Provider Orthopaedic Surgery
PROC: 0SG0071 Fusion of Lumbar Vertebral Joint with Autologous Tissue Substitute, Posterior Approach, Posterior Column, Open Approach (ICD-10-PCS; principal; 2022-06-06 07:00)
PROC: 0SG0071 Fusion of Lumbar Vertebral Joint with Autologous Tissue Substitute, Posterior Approach, Posterior Column, Open Approach (ICD-10-PCS; CPT 63005; 2022-06-06 07:00)
DX: M43.17 Spondylolisthesis, lumbosacral region (principal); G97.41 Accidental puncture or laceration of dura during a procedure; M48.062 Spinal stenosis, lumbar region with neurogenic claudication; Y65.8 Other specified misadventures during surgical and medical care; Y92.234 Operating room of hospital as the place of occurrence of the external cause; I48.91 Unspecified atrial fibrillation; I10 Essential (primary) hypertension; F41.9 Anxiety disorder, unspecified; F32.9 Major depressive disorder, single episode, unspecified; Z87.891 Personal history of nicotine dependence
CPT/HCPCS: 36415; 51702; 72100; 76000; 80048; 85025; 86850; 86900; 93005; 97110; 97116; 97161; 97530; C1713; J0131; J0330; J0690; J1100; J1170; J1200; J1644; J2250; J2405; J2704; J3010; J3370; J3490; J7030; J7120; P9045

== ENCOUNTER 2022-06-14 09:49 | Emergency (ER) | payer MEDICARE, OTHER, SELFPAY ==
[2022-06-14 09:51] VITALS: BP 155/65; PULSE 76; RESP 18; TEMP 36.5; O2SAT 97
[2022-06-14 09:55] VITALS: BP 176/72; PULSE 78; RESP 18; O2SAT 98
--- NOTE | 2022-06-14 10:03 | W.ED.HA ---
HPI - Headache General: Chief Complaint: Headache Stated Complaint: headache,dizzy,weak Time Seen by Provider: 06/14/22 10:00 History of Present Illness: Patient is a 77-year-old female comes to the ED with a headache. Patient had lumbar spinal fusion surgery by Dr. Ana rodriguez on June 06. She had no complications after surgery. Patient states she did have a headache a couple days after procedure but states that it went away. The headache she has now feels different and she rates it a 7 out of 10 and is not the frontal part of her head. She also endorses having a cough and nasal congestion and drainage. Cough is dry nonproductive. She endorses malaise and bilateral leg muscle cramps. Denies any fevers, vomiting, chest pain, shortness of breath, abdominal pain, bladder or bowel symptoms. Associated symptoms: Reports malaise; Deny chest pain, fever(s), nausea, rash or vomiting Review of Systems Const: Reports: malaise; Denies: fever(s), chills or fatigue Eyes: Denies: change in vision or eye discomfort ENMT: Denies: throat pain, odynophagia, nasal discharge or nasal congestion Card: Denies: chest pain, palpitations, edema, swelling of feet/ankles, dyspnea on exertion or orthopnea Resp: Reports: non-productive cough; Denies: dyspnea or productive cough GI: Denies: abdominal pain, nausea, vomiting, diarrhea, constipation or hematochezia : Denies: flank pain, dysuria or hematuria Musc: Reports: muscle cramps (Bilateral leg cramp); Denies: neck pain, back pain or extremity swelling Skin/Breast: Denies: rash or new lesions Neuro: Reports: headache(s); Denies: numbness in extremities or weakness in extremities PFS ED PFSH: Medical History Atrial fibrillation Essential hypertension OA (osteoarthritis) Psoriatic arthritis Surgical History History of appendectomy History of cataract surgery Both eyes History of hysterectomy with out BSO History of knee surgery Left knee patella fracture History of tonsillectomy and adenoidectomy Family History Father CAD (coronary artery disease) Denies family history of Diabetes Chronic kidney disease (CKD) Cancer Hypertension Stroke Social History Smoking and tobacco status: former smoker Second hand smoke exposure: No Smoking risk assessment/counseling performed?: No Alcohol intake: never Desire information about alcohol rehabilitation?: No Counseling given: No Substance/Drug Use: never Desire information about substance/drug rehabilitation?: No Counseling given: No Adopted: No Caregiver/support person: No Lives independently: Yes Household members: significant other Housing: House Marital status: Life Partner Number of children: 0 Number of grandchildren: 0 Highest education level completed: Bachelor's Degree service: No Current occupational status: retired Current occupational exposures/hazards: No Pets and animals: Yes Pets & animal details: chickens Do you think of yourself as: Straight/Heterosexual Current gender identity: Female Physical Exam Const: COMMON NORMALS: no acute distress, patient oriented x3 and alert HENMT: COMMON NORMALS: normocephalic HEAD & SCALP: normocephalic MOUTH: Normal oral and palatal mucosa present THROAT: posterior oropharynx normal and uvula midline Eye: COMMON NORMALS: Equal, round and reactive pupils present, EOMs intact bilaterally and conjunctivae normal CONJUNCTIVA: Yes conjunctivae normal PUPIL: Yes Equal, round and reactive pupils present Neck/C-Spine: COMMON NORMALS: supple GENERAL: Yes normal visual inspection Resp: COMMON NORMALS: normal respiratory effort, No retractions, No use of accessory muscles and clear to auscultation bilaterally AUSCULTATION: clear to auscultation bilaterally Cardio: COMMON NORMALS: regular rate, regular rhythm, S1 normal heart sound present, S2 normal heart sound present, No gallops present (Cardio), No clicks present (Cardio), No murmurs present (Cardio) and Peripheral pulses 2+ throughout RATE: regular rate RHYTHM: regular rhythm HEART SOUNDS: S1 normal heart sound present and S2 normal heart sound present PERIPHERAL PULSES: Peripheral pulses 2+ throughout GI: COMMON NORMALS: Normal to inspection, nondistended, normoactive bowel sounds present, Soft to palpation, non-tender and no masses PALPATION: Yes Soft to palpation : COMMON NORMALS: Yes no CVA tenderness BLADDER/KIDNEY EXAM: Yes no CVA tenderness Back/Pelvis: COMMON NORMALS: no CVA tenderness Extremity: COMMON NORMALS: normal to inspection Neuro: COMMON NORMALS: patient oriented x3, CN's II-XII intact bilaterally, moves all extremities and no focal motor deficits SENSORIUM/ORIENTATION: Yes alert COORDINATION/BALANCE: [id number] test normal SPEECH: speech normal GAIT: Yes Normal gait present COORDINATION: [id number] test normal Skin: GENERAL SKIN EXAM: dry skin Course Vital Signs: Vital signs: Vital Signs Temperature 97.7 F 06/14/22 09:51 Pulse Rate 82 06/14/22 12:31 Respiratory Rate 16 06/14/22 12:31 Blood Pressure 176/72 06/14/22 09:55 Pulse Oximetry 98 06/14/22 12:31 Oxygen Delivery Me thod Room Air 06/14/22 09:51 MDM - Headache Medical Decision Making Patient is a 77-year-old female comes to the ED with a headache. Patient had lumbar spinal fusion surgery by Dr. Perez back on June 06. She had no complications after surgery. Patient states she did have a headache a couple days after procedure but states that it went away. The headache she has now feels different and she rates it a 7 out of 10 and is not the frontal part of her head. She also endorses having a cough and nasal congestion and drainage. Cough is dry nonproductive. She endorses malaise and bilateral leg muscle cramps. Denies any fevers, vomiting, chest pain, shortness of breath, abdominal pain, bladder or bowel symptoms. Vitals are stable. Exam is benign and neuro exam shows no deficits. Hemoglobin 9.3 and sodium was 128 but the rest of CBC and CMP are unremarkable. Chest x-ray shows no acute findings. Patient was given dose of Toradol and sodium tablet. She was stable for discharge home and diagnosed with a headache, anemia and hyponatremia. She was given strict return to ED precautions. She has follow-up with Dr. Perez later today. She was told to see her PCP in the next 2 to 3 days to have her hemoglobin and sodium levels rechecked. Patient understood and agreed with plan. Lab Data I reviewed the patient's lab results. 06/14/22 11:03 06/14/22 11:03 Radiology Impressions Chest X-Ray 06/14/22 10:20 IMPRESSION: No acute findings. Laboratory Results WBC 7.6 10^3/uL (4.0-10.0) 06/14/22 11:03 RBC 2.94 10^6/uL (4.1-5.3) L 06/14/22 11:03 Hgb 9.3 g/dL (11.5-15.3) L 06/14/22 11:03 Hct 28.8 % (37.0-47.0) L 06/14/22 11:03 MCV 98.0 fl (81-99) 06/14/22 11:03 MCH 31.6 pg (28.0-34.0) 06/14/22 11:03 MCHC 32.3 g/dL (30.0-36.0) 06/14/22 11:03 RDW 14.2 % (12.1-15.1) 06/14/22 11:03 Plt Count 327 10^3/cmm (130-400) 06/14/22 11:03 MPV 8.9 fL (7.4-10.4) 06/14/22 11:03 Neut % (Auto) 73.5 % 06/14/22 11:03 Lymph % (Auto) 16.2 % 06/14/22 11:03 Cotton % (Auto) 8.0 % 06/14/22 11:03 Eos % (Auto) 0.9 % 06/14/22 11:03 Baso % (Auto) 0.3 % 06/14/22 11:03 Neut # (Auto) 5.57 10^3/uL (1.8-7.7) 06/14/22 11:03 Lymph # (Auto) 1.2 10^3/uL (0.8-4.8) 06/14/22 11:03 Cotton # (Auto) 0.6 10^3/uL (0.2-0.9) 06/14/22 11:03 Eos # (Auto) 0.1 10^3/uL (0.0-0.8) 06/14/22 11:03 Baso # (Auto) 0.0 10^3/uL (0.0-0.1) 06/14/22 11:03 Nucleated RBC % (auto) 0 % 06/14/22 11:03 Nucleated RBCs # 0.0 /100WBC 06/14/22 11:03 Sodium 128 mmol/L (136-145) L 06/14/22 11:03 Potassium 4.0 mmol/L (3.5-5.1) 06/14/22 11:03 Chloride 93 mmol/L (98-107) L 06/14/22 11:03 Carbon Dioxide 22 mmol/L (22-29) 06/14/22 11:03 Anion Gap 17.0 (5-19) 06/14/22 11:03 BUN 13 mg/dL (8-23) 06/14/22 11:03 Creatinine 0.5 mg/dL (0.5-0.9) 06/14/22 11:03 GFR Calculation Not Reportable 06/14/22 11:03 Glucose 102 mg/dL (65-115) 06/14/22 11:03 Calculated Osmolality 266 mOsm/kg (285-295) L 06/14/22 11:03 Calcium 8.6 mg/dL (8.5-10.5) 06/14/22 11:03 Total Bilirubin 0.4 mg/dL (0.15-1.2) 06/14/22 11:03 AST 28 U/L (0-32) 06/14/22 11:03 ALT 29 U/L (0-33) 06/14/22 11:03 Alkaline Phosphatase 145 U/L (35-105) H 06/14/22 11:03 Total Protein 5.9 g/dL (6.6-8.7) L 06/14/22 11:03 Albumin 3.3 g/dL (3.5-5.2) L 06/14/22 11:03 Globulin 2.6 g/dL (1.3-4.6) 06/14/22 11:03 Discharge Plan Discharge Patient Disposition: Home Clinical Impression: Hyponatremia Headache Qualifiers: Headache type: unspecified Headache chronicity pattern: acute headache Intractability: not intractable Qualified Code(s): R51.9 - Headache, unspecified Anemia Qualifiers: Anemia type: unspecified type Qualified Code(s): D64.9 - Anemia, unspecified Condition: Stable Prescriptions: No Action metoprolol tartrate 100 mg tablet 100 mg PO BID Qty: 180 3RF meloxicam 15 mg tablet 15 mg PO DAILY PRN (Reason: pain) Qty: 30 2RF (DME) Intraoperative Neuromonitoring See Rx Instructions .Route .MEDSUPPLY Qty: 1 0RF Rx Instructions: As directed cyclobenzaprine 10 mg tablet 10 mg PO DAILY PRN (Reason: muscle spasm) (DME) Bone Growth Stimulator [id number] See Rx Instructions .Route .MEDSUPPLY Qty: 1 0RF Rx Instructions: As directed cyclobenzaprine 10 mg tablet 10 mg PO TID PRN (Reason: muscle spasm) 20 Days Qty: 60 0RF multivitamin Tablet 1 tab PO DAILY zinc acetate 50 mg (zinc) Capsule 50 mg PO DAILY acetaminophen 500 mg Tablet 500 - 1,000 mg PO Q6H PRN (Reason: Pain) magnesium 200 mg Tablet 200 mg PO DAILY cholecalciferol (vitamin D3) [Vitamin D3] 25 mcg (1,000 unit) Tablet 2,000 - 5,000 unit PO DAILY levocetirizine [Xyzal] 5 mg Tablet 5 mg PO DAILY NAC 600 mg Tablet 600 mg PO BID alprazolam 0.5 mg tablet 0.25 - 0.5 mg PO BEDTIME PRN (Reason: Sleep) lisinopril 10 mg tablet 10 mg PO QAM Discharge Orders: Discharge ED (Routine); Ordered 06/14/22 Ordered By: Todd Gunderson Referrals: Jimmie Arenas DO [Primary Care Provider] - Discharge Diet: Regular Discharge Activity: Increase activity as tolerated Patient Instructions: Hyponatremia (ED), Anemia (ED) Activity Restrictions/Additional Instructions: Follow-up with Dr. Perez at your next scheduled appointment later today. Also have your primary care recheck your sodium and hemoglobin labs in the next 2 to 3 days. Continue taking all home medications as previously prescribed. Return to the ER or your medical provider if condition worsens. Please read and understand discharge instructions. Thank you for choosing [facility] for your healthcare needs today. Please realize this is an emergency room and that we are providing you with a medical screening exam and this may not be complete and all inclusive of all the testing and or work up that you may need to determine your ailment or severity of your illness. It is very important that you follow up as instructed or that you return to the Emergency Department should you have concerns or if your condition changes or worsens in any way. Coding Level of Care Code ED [employer] Support for Sukumar Carmen
--- NOTE | 2022-06-14 10:20 | XRR_ITS ---
PROCEDURE INFORMATION: Exam: XR Chest Exam date and time: 06/14/2022 10:28 AM Age: 77 years old Clinical indication: Cough TECHNIQUE: Imaging protocol: Radiologic exam of the chest. Views: 1 view. COMPARISON: CR XR chest 2V* [id number] 01/24/2022 3:05 PM FINDINGS: Lungs: Unremarkable. No consolidation. Pleural spaces: Unremarkable. No pleural effusion. No pneumothorax. Heart/Mediastinum: Unremarkable. No cardiomegaly. Bones/joints: Unremarkable. XR/XR chest 1V portable [id number] IMPRESSION: No acute findings.
[2022-06-14 11:00] VITALS: RESP 18; O2SAT 98
[2022-06-14 11:20] LABS: Basophils % 0.3 %; Eosinophils # 0.1 10^3/uL (0.0-0.8); Eosinophils % 0.9 %; Hematocrit 28.8 % (37.0-47.0); Hemoglobin 9.3 g/dL (11.5-15.3); Lymphocytes # 1.2 10^3/uL (0.8-4.8); Lymphocytes % 16.2 %; Mean Corpuscular HGB Conc 32.3 g/dL (30.0-36.0); Mean Corpuscular Hemoglobin 31.6 pg (28.0-34.0); Mean Platelet Volume 8.9 fL (7.4-10.4); Monocytes # 0.6 10^3/uL (0.2-0.9); Neutrophils # 5.57 10^3/uL (1.8-7.7); Neutrophils % 73.5 %; Nucleated Red Blood Cells % 0 %; Platelet Count 327 10^3/cmm (130-400); Red Blood Count 2.94 10^6/uL (4.1-5.3); Red Cell Distribution Width 14.2 % (12.1-15.1); White Blood Count 7.6 10^3/uL (4.0-10.0)
[2022-06-14 11:42] LABS: Alanine Aminotransferase 29 U/L (0-33); Albumin Level 3.3 g/dL (3.5-5.2); Alkaline Phosphatase 145 U/L (35-105); Aspartate Amino Transferase 28 U/L (0-32); Blood Urea Nitrogen 13 mg/dL (8-23); Calcium 8.6 mg/dL (8.5-10.5); Carbon Dioxide 22 mmol/L (22-29); Chloride 93 mmol/L (98-107); Globulin 2.6 g/dL (1.3-4.6); Glucose 102 mg/dL (65-115); Osmolality Calculated 266 mOsm/kg (285-295); Sodium 128 mmol/L (136-145); Total Bilirubin 0.4 mg/dL (0.15-1.2); Total Protein 5.9 g/dL (6.6-8.7)
[2022-06-14] MEDS: ketorolac 60 mg/2 mL INJ IM (11:56)
[2022-06-14] MEDS: sodium chloride 1 gm Tablet PO (12:28)
[2022-06-14 12:31] VITALS: PULSE 82; RESP 16; O2SAT 98
== END 2022-06-14 12:32 | disposition home or self-care (01) ==
PROVIDERS: Emergency Provider Physician Assistant; PCP Family Medicine
DX: R51.9 Headache, unspecified (principal); D64.9 Anemia, unspecified; E87.1 Hypo-osmolality and hyponatremia; Z87.891 Personal history of nicotine dependence; I10 Essential (primary) hypertension
CPT/HCPCS: 71045; 80053; 85025; 96372; 99024; 99284; J1885

== ENCOUNTER → 2022-06-15 14:32 | Outpatient (BNVA) | payer MEDICARE, OTHER, SELFPAY | PROVIDERS: PCP Family Medicine; Visit Provider Nurse Practitioner Family | DX: M79.89 Other specified soft tissue disorders (principal); D64.9 Anemia, unspecified; E87.1 Hypo-osmolality and hyponatremia | CPT/HCPCS: 80053; 85025 ==

== ENCOUNTER → 2022-06-21 12:15 | Outpatient (BNVA) | payer MEDICARE, OTHER, SELFPAY | PROVIDERS: PCP Family Medicine; Visit Provider Family Medicine | DX: D64.9 Anemia, unspecified (principal); E87.1 Hypo-osmolality and hyponatremia; R73.9 Hyperglycemia, unspecified; M48.061 Spinal stenosis, lumbar region without neurogenic claudication; M54.50 Low back pain, unspecified; Z98.1 Arthrodesis status | CPT/HCPCS: 80053; 83036; 85025 ==

== ENCOUNTER → 2022-06-23 14:26 | Outpatient (BNVA) | payer MEDICARE, OTHER, SELFPAY | PROVIDERS: PCP Family Medicine; Visit Provider Physician Assistant | DX: Z98.1 Arthrodesis status (principal) | CPT/HCPCS: 72100; 99024 ==

== ENCOUNTER → 2022-06-27 09:19 | Outpatient (BNVA) | payer MEDICARE, OTHER, SELFPAY | PROVIDERS: PCP Family Medicine; Visit Provider Family Medicine | DX: E87.1 Hypo-osmolality and hyponatremia (principal) | CPT/HCPCS: 80053 ==

== ENCOUNTER 2022-07-07 06:00 | Outpatient (RCR) | payer MEDICARE, OTHER, SELFPAY | END 2022-08-05 23:59 | disposition home or self-care (01) | LOC: APT 06:00 | PROVIDERS: Visit Provider Family Medicine | DX: Z98.1 Arthrodesis status (principal) | CPT/HCPCS: 97110; 97112; 97162; 97530 ==

== ENCOUNTER → 2022-07-19 14:05 | Outpatient (BNVA) | payer MEDICARE, OTHER, SELFPAY | PROVIDERS: PCP Family Medicine; Visit Provider Family Medicine | DX: D64.9 Anemia, unspecified (principal); E87.1 Hypo-osmolality and hyponatremia; I10 Essential (primary) hypertension | CPT/HCPCS: 80053; 85025 ==

== ENCOUNTER → 2022-07-21 09:43 | Outpatient (BNVA) | payer MEDICARE, OTHER, SELFPAY | PROVIDERS: Visit Provider Physician Assistant | DX: Z98.1 Arthrodesis status (principal) | CPT/HCPCS: 72100; 99024 ==

== ENCOUNTER 2022-08-06 06:00 | Outpatient (RCR) | payer MEDICARE, OTHER, SELFPAY | END 2022-09-05 23:59 | disposition home or self-care (01) | LOC: APT 06:00 | PROVIDERS: PCP Family Medicine; Visit Provider Family Medicine | DX: Z98.1 Arthrodesis status (principal) | CPT/HCPCS: 97110; 97112; 97530 ==

== ENCOUNTER → 2022-08-31 10:46 | Outpatient (BNVA) | payer MEDICARE, OTHER, SELFPAY | PROVIDERS: PCP Family Medicine; Visit Provider Physician Assistant | DX: Z98.1 Arthrodesis status (principal); M17.0 Bilateral primary osteoarthritis of knee | CPT/HCPCS: 72100; 73560; 73565; 99024 ==

== ENCOUNTER 2022-09-06 06:00 | Outpatient (RCR) | payer MEDICARE, OTHER, SELFPAY | END 2022-10-06 23:59 | disposition home or self-care (01) | LOC: APT 06:00 | PROVIDERS: PCP Family Medicine; Visit Provider Family Medicine | DX: Z98.1 Arthrodesis status (principal) | CPT/HCPCS: 97110; 97112; 97530 ==

== ENCOUNTER 2022-10-07 06:00 | Outpatient (RCR) | payer MEDICARE, OTHER, SELFPAY | END 2022-11-05 23:59 | disposition home or self-care (01) | LOC: APT 06:00 | PROVIDERS: PCP Family Medicine; Visit Provider Family Medicine | DX: Z98.1 Arthrodesis status (principal) | CPT/HCPCS: 97110; 97530 ==

== ENCOUNTER → 2022-10-27 13:44 | Outpatient (BNVA) | payer MEDICARE, OTHER, SELFPAY | PROVIDERS: PCP Family Medicine; Visit Provider Family Medicine | DX: E87.1 Hypo-osmolality and hyponatremia (principal); M19.90 Unspecified osteoarthritis, unspecified site; I48.91 Unspecified atrial fibrillation; M17.0 Bilateral primary osteoarthritis of knee; M54.50 Low back pain, unspecified; M62.838 Other muscle spasm; I10 Essential (primary) hypertension | CPT/HCPCS: 80053; 85025 ==

== ENCOUNTER → 2022-11-22 13:06 | Outpatient (BNVA) | payer MEDICARE, OTHER, SELFPAY | PROVIDERS: PCP Family Medicine; Visit Provider Physician Assistant | DX: Z98.1 Arthrodesis status (principal); M48.062 Spinal stenosis, lumbar region with neurogenic claudication; M43.17 Spondylolisthesis, lumbosacral region; M43.16 Spondylolisthesis, lumbar region | CPT/HCPCS: 72100; 99213 ==

== ENCOUNTER 2022-12-06 15:24 | Outpatient (CLI) | payer MEDICARE, OTHER, SELFPAY | END 2022-12-06 15:25 | disposition home or self-care (01) | LOC: SPT 15:25 | PROVIDERS: PCP Family Medicine; Visit Provider Student in an Organized Health Care Education/Training Program | DX: Z46.89 Encounter for fitting and adjustment of other specified devices (principal); M17.0 Bilateral primary osteoarthritis of knee | CPT/HCPCS: 97760; 99214; L1851 ==

== ENCOUNTER → 2023-01-06 08:54 | Outpatient (BNVA) | payer MEDICARE, OTHER, SELFPAY | PROVIDERS: PCP Family Medicine; Visit Provider Physician Assistant | DX: M17.0 Bilateral primary osteoarthritis of knee | CPT/HCPCS: 20610; 99213; J7327 ==

== ENCOUNTER → 2023-02-21 12:39 | Outpatient (BNVA) | payer MEDICARE, OTHER, SELFPAY | PROVIDERS: PCP Family Medicine; Visit Provider Family Medicine | DX: M16.12 Unilateral primary osteoarthritis, left hip (principal); M25.552 Pain in left hip | CPT/HCPCS: 73502 ==

== ENCOUNTER → 2023-03-20 13:38 | Outpatient (BNVA) | payer MEDICARE, OTHER, SELFPAY | PROVIDERS: PCP Family Medicine; Visit Provider Family Medicine | DX: E55.9 Vitamin D deficiency, unspecified (principal); I10 Essential (primary) hypertension; I48.91 Unspecified atrial fibrillation; E87.1 Hypo-osmolality and hyponatremia; E03.9 Hypothyroidism, unspecified; M19.90 Unspecified osteoarthritis, unspecified site; Z79.899 Other long term (current) drug therapy | CPT/HCPCS: 80053; 82607; 82652; 84443 ==

== ENCOUNTER → 2023-05-02 14:32 | Outpatient (BNVA) | payer MEDICARE, OTHER, SELFPAY | PROVIDERS: PCP Family Medicine; Visit Provider Family Medicine | DX: N39.0 Urinary tract infection, site not specified (principal); I10 Essential (primary) hypertension; I48.91 Unspecified atrial fibrillation; M48.061 Spinal stenosis, lumbar region without neurogenic claudication; L40.50 Arthropathic psoriasis, unspecified | CPT/HCPCS: 81000 ==

== ENCOUNTER → 2023-07-14 11:19 | Outpatient (BNVA) | payer MEDICARE, OTHER, SELFPAY | PROVIDERS: PCP Family Medicine; Visit Provider Physician Assistant | DX: M17.0 Bilateral primary osteoarthritis of knee (principal) | CPT/HCPCS: 99213 ==

== ENCOUNTER → 2023-07-25 15:17 | Outpatient (BNVA) | payer MEDICARE, OTHER, SELFPAY | PROVIDERS: PCP Family Medicine; Visit Provider Family Medicine | DX: N28.9 Disorder of kidney and ureter, unspecified (principal); E87.1 Hypo-osmolality and hyponatremia | CPT/HCPCS: 80048 ==

== ENCOUNTER → 2023-10-10 13:42 | Outpatient (BNVA) | payer MEDICARE, OTHER, SELFPAY | PROVIDERS: PCP Family Medicine; Visit Provider Family Medicine | DX: I10 Essential (primary) hypertension (principal); E87.1 Hypo-osmolality and hyponatremia; M19.90 Unspecified osteoarthritis, unspecified site | CPT/HCPCS: 80053; 85025 ==

== ENCOUNTER → 2023-11-21 14:40 | Outpatient (BNVA) | payer MEDICARE, OTHER, SELFPAY | PROVIDERS: PCP Family Medicine; Visit Provider Family Medicine | DX: Z86.2 Personal history of diseases of the blood and blood-forming organs and certain disorders involving the immune mechanism (principal) | CPT/HCPCS: 85025 ==

== ENCOUNTER → 2024-02-29 14:05 | Outpatient (BNVA) | payer MEDICARE, OTHER, SELFPAY | PROVIDERS: PCP Family Medicine; Visit Provider Family Medicine | DX: E55.9 Vitamin D deficiency, unspecified (principal); I48.91 Unspecified atrial fibrillation; E87.1 Hypo-osmolality and hyponatremia; I10 Essential (primary) hypertension; E03.9 Hypothyroidism, unspecified; Z86.2 Personal history of diseases of the blood and blood-forming organs and certain disorders involving the immune mechanism; M48.061 Spinal stenosis, lumbar region without neurogenic claudication; G47.00 Insomnia, unspecified; L40.9 Psoriasis, unspecified | CPT/HCPCS: 80053; 80061; 82607; 84443; 85025 ==

== ENCOUNTER → 2024-04-11 13:07 | Outpatient (BNVA) | payer MEDICARE, OTHER, SELFPAY | PROVIDERS: PCP Family Medicine; Referring Provider Family Medicine; Visit Provider Nurse Practitioner Family | DX: L40.0 Psoriasis vulgaris (principal); D18.01 Hemangioma of skin and subcutaneous tissue; L81.4 Other melanin hyperpigmentation; L57.8 Other skin changes due to chronic exposure to nonionizing radiation; L57.0 Actinic keratosis | CPT/HCPCS: 17000; 99203 ==

== ENCOUNTER → 2024-05-17 10:31 | Outpatient (BNVA) | payer MEDICARE, OTHER, SELFPAY | PROVIDERS: PCP Family Medicine; Visit Provider Family Medicine | DX: E87.1 Hypo-osmolality and hyponatremia (principal); R60.9 Edema, unspecified; Z86.2 Personal history of diseases of the blood and blood-forming organs and certain disorders involving the immune mechanism; E03.9 Hypothyroidism, unspecified | CPT/HCPCS: 80053; 82306; 82607; 84443; 85025; 86140 ==

== ENCOUNTER 2024-07-03 14:10 | Outpatient (CLI) | payer MEDICARE, OTHER, SELFPAY ==
[2024-07-03 14:47] LABS: Basophils % 0.4 %; Eosinophils # 0.1 10^3/uL (0.0-0.8); Eosinophils % 1.4 %; Hematocrit 36.9 % (36-47); Lymphocytes # 2.3 10^3/uL (0.8-4.8); Lymphocytes % 32.8 %; Mean Corpuscular HGB Conc 33.6 g/dL (30-55); Mean Corpuscular Volume 95.3 fl (85-98); Mean Platelet Volume 9.3 fL (7.4-10.4); Monocytes # 0.7 10^3/uL (0.2-0.9); Monocytes % 9.9 %; Neutrophils # 3.89 10^3/uL (1.8-7.7); Neutrophils % 55.1 %; Nucleated Red Blood Cells % 0 %; Platelet Count 279 10^3/cmm (157-399); Red Blood Count 3.87 10^6/uL (3.85-5.65); White Blood Count 7.07 10^3/uL (3.29-11.43)
[2024-07-03 15:08] LABS: Alanine Aminotransferase 13 U/L (0-33); Albumin Level 4.2 g/dL (3.5-5.2); Alkaline Phosphatase 137 U/L (35-105); Anion Gap 21.4 (5-19); Aspartate Amino Transferase 19 U/L (0-32); Blood Urea Nitrogen 20 mg/dL (8-23); Calcium 9.4 mg/dL (8.5-10.5); Carbon Dioxide 20 mmol/L (22-29); Chloride 91 mmol/L (98-107); Globulin 2.6 g/dL (1.3-4.6); Glucose 85 mg/dL (65-115); Osmolality Calculated 268 mOsm/kg (285-295); Potassium 4.4 mmol/L (3.5-5.1); Sodium 128 mmol/L (136-145); Total Bilirubin 0.3 mg/dL (0.15-1.2); Total Protein 6.8 g/dL (6.6-8.7)
== END 2024-07-03 14:11 | disposition home or self-care (01) ==
LOC: LAB 14:13
PROVIDERS: PCP Family Medicine; Visit Provider Family Medicine
DX: E87.1 Hypo-osmolality and hyponatremia (principal); R60.9 Edema, unspecified; E77.8 Other disorders of glycoprotein metabolism; Z86.2 Personal history of diseases of the blood and blood-forming organs and certain disorders involving the immune mechanism
CPT/HCPCS: 36415; 80053; 84255; 85025

== ENCOUNTER → 2024-10-01 12:20 | Outpatient (BNVA) | payer MEDICARE, OTHER, SELFPAY | PROVIDERS: PCP Family Medicine; Visit Provider Family Medicine | DX: Z86.2 Personal history of diseases of the blood and blood-forming organs and certain disorders involving the immune mechanism (principal); I48.91 Unspecified atrial fibrillation; E87.1 Hypo-osmolality and hyponatremia | CPT/HCPCS: 80053; 85025 ==

== ENCOUNTER → 2025-01-21 14:44 | Outpatient (BNVA) | payer MEDICARE, OTHER, SELFPAY | PROVIDERS: PCP Family Medicine; Visit Provider Family Medicine | DX: Z79.899 Other long term (current) drug therapy (principal); I10 Essential (primary) hypertension; Z86.2 Personal history of diseases of the blood and blood-forming organs and certain disorders involving the immune mechanism; M19.90 Unspecified osteoarthritis, unspecified site; E77.8 Other disorders of glycoprotein metabolism; E03.9 Hypothyroidism, unspecified | CPT/HCPCS: 80053; 82306; 82607; 84443; 85025 ==